=== PATIENT | female | born 1995 | race Caucasian/White ===

== ENCOUNTER 2021-11-28 08:34 | Outpatient (CLI) | payer MEDICAID, SELFPAY ==
--- NOTE | 2021-11-28 08:00 | DI.RAD_ITS ---
Exam(s) XR KNEE LT 4V AP,LAT,NADIRA,PAT EXAM: XR KNEE LT 4V AP,LAT,NADIRA,PAT CLINICAL HISTORY: left knee pain. TECHNIQUE: 2D digital imaging was performed. COMPARISON: CR LEFT KNEE 3 VIEW COMPLETE from 12/20/2010 FINDINGS: Four views: There is no evidence of fracture. There appears to be a small amount of increased joint fluid. No o sseous lesions. No degenerative changes. Bone density normal. IMPRESSION: No significant osseous findings. Slight increased amount of joint fluid. DATA REPOSITORY: RADIATION DOSE DELIVERED:
== END 2021-11-28 08:35 | disposition home or self-care (01) ==
LOC: DIORS 08:34
PROVIDERS: PCP Nurse Practitioner; Referring Provider Nurse Practitioner; Visit Provider Physician Assistant
DX: M25.562 Pain in left knee (principal); M25.462 Effusion, left knee
CPT/HCPCS: 73564

== ENCOUNTER → 2022-01-12 19:17 | Outpatient (CLI) | payer MEDICAID, SELFPAY ==
--- NOTE | 2022-01-12 14:30 | DI.RAD_ITS ---
Exam(s) XR HAND RT COMPLETE EXAM: XR HAND RT COMPLETE CLINICAL HISTORY: r/o bony pathology,dog bite, hand swelling,m79.89,w54,0xxa. TECHNIQUE: 2D digital imaging was performed. COMPARISON: No exams were available for comparison FINDINGS: 3 views No evidence of fracture or dislocation. No radiopaque foreign body. No osseous lesions nor erosions and no radiographic evidence of osteomyelitis. IMPRESSION: No significant radiographic findings. DATA REPOSITORY: RADIATION DOSE DELIVERED:
== END ==
PROVIDERS: PCP Nurse Practitioner; Visit Provider Student in an Organized Health Care Education/Training Program
DX: M79.89 Other specified soft tissue disorders (principal); W54.0XXA Bitten by dog, initial encounter
CPT/HCPCS: 73130